=== PATIENT | male | born 2000 | race Hispanic/Latino ===

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

== ENCOUNTER 2020-02-13 11:26 | Emergency (ER) | payer OTHER ==
[~2020-02-13] VITALS: Ht 167.6 cm; Wt 63.5 kg
[2020-02-13] MEDS ORDERED: NORCO 5-325 TA1 EACH PO (12:46)
== END 2020-02-13 13:05 | disposition home or self-care (01) ==
LOC: ED 11:26
DX: M54.9 Dorsalgia, unspecified (principal)
CPT/HCPCS: 71046; 99283-25

== ENCOUNTER 2021-03-23 08:42 | Emergency (ER) | payer OTHER ==
[~2021-03-23] VITALS: Ht 167.6 cm; Wt 61.2 kg
[~2021-03-23 08:42] MED LIST changes: +NORCO 5-325 TA1 EACH PO
== END 2021-03-23 10:06 | disposition home or self-care (01) ==
LOC: ED 08:42
DX: S29.012A Strain of muscle and tendon of back wall of thorax, initial encounter (principal); X50.9XXA Other and unspecified overexertion or strenuous movements or postures, initial encounter; Y99.0 Civilian activity done for income or pay
CPT/HCPCS: 72070; 99283-25

== ENCOUNTER 2021-07-14 15:31 | Emergency (ER) | payer OTHER ==
[~2021-07-14] VITALS: Ht 167.6 cm; Wt 64.9 kg
== END 2021-07-14 17:12 | disposition home or self-care (01) ==
LOC: ED 15:31
DX: S40.011A Contusion of right shoulder, initial encounter (principal); W22.8XXA Striking against or struck by other objects, initial encounter; Y99.0 Civilian activity done for income or pay
CPT/HCPCS: 73030; 99283-25